=== PATIENT | female | born 1975 | race Two or more races ===

== ENCOUNTER 2024-06-26 11:37 | Outpatient (RCR) | payer MEDICAID, SELFPAY ==
--- NOTE | 2024-07-02 14:20 | CTCCONSULT_ITS ---
Patient: YOLANDE CUEVAS : 1975 MR#: [id number] Page 2 of 3 CONSULTATION NOTE DATE OF CONSULTATION: 06/26/2024 NAME: YOLANDE CUEVAS ACCOUNT: [id number] : 1975 AGE: 49 REFERRING PHYSICIAN: Sarina Lozano MD PRIMARY PHYSICIAN: Sarina Lozano MD REASON FOR VISIT: LCIS ONCOLOGY HISTORY: DIAGNOSIS: 03/04/2022 LCIS DATE OF DIAGNOSIS: 03/04/2022 STAGE/TNM: Stage 0 TREATMENT HISTORY: Care?Plan Start?Date Cycle Day Intent tamoxifen HISTORY OF PRESENT ILLNESS: 49-year-old female with a history of LCIS. Patient was diagnosed in 2021 and has been on tamoxifen. Patient is tolerating well and have no complaints. Patient want to establish care with us. OTHER MEDICAL HISTORY/CONDITIONS: LCIS left breast - dx Hypothyroid Obesity Tubal ligation Cholecystectomy - 6 yrs ago Uterine ablation FAMILY HISTORY: Patient?denies?family?cancer?history. SOCIAL HISTORY: Occupational?History:?Unemployed Education?Level:?Completed High School Marital?Status:? 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 betamethasone dipropionate - 0.05 % Every other day 2. levothyroxine - 175 mcg 1 tab Daily 3. tamoxifen - 20 mg 1 tab Daily 4. Wegovy - 0.25 mg/0.5 mL Weekly Medications Last Reconciled by Meredith Ruiz RN on 06/26/2024 ALLERGIES: No Known Drug Allergies REVIEW OF SYSTEMS: A complete 14-point review of systems was performed and is negative except as noted in interval histo ry. PHYSICAL EXAMINATION: VITAL SIGNS: Height?68?inches Weight?235?lbs PAIN: 0 - No pain ECOG Performance Status: 0 - Asymptomatic and fully active GENERAL APPEARANCE: Appears well, in no apparent distress, appropriately interactive. HEENT: Normocephalic, no temporal wasting, normal conjunctiva, no scleral icterus, normal hearing, li ps without lesions, neck normal range of motion. CARDIOVASCULAR: Not assessed. PULMONARY: Normal respiratory effort, no respiratory distress or use of accessory muscles, speaking i n full sentences, no tachypnea. EXTREMITIES: No pedal edema or cyanosis. SKIN: Normal skin appearance. NEUROLOGIC: Alert and oriented x4. PSHYCHIATRIC: Appropriate affect, mood normal, behavior normal, intact thought and speech. LABORATORY DATA: I have personally reviewed and interpreted each of the patient?s relevant lab tests, abnormal finding s are below: Date ASSESSMENT/PLAN: LCIS Patient need to continue tamoxifen for 5 years Reviewed old pathology report Tolerating tamoxifen well Patient have regular menstruation Will continue tamoxifen Advised to take calcium and vitamin D3 ORDERS: Tamoxifen CBC MP RETURN TO CLINIC: 6 months BILLING AND COMPLIANCE: I reviewed external records from providers outside my specialty as summarized above. I spent a total of 50 minutes on this patient?s care on the day of their visit excluding time spent related to any bi lled procedures. This time includes time spent with the patient as well as time spent documenting in the medical record, reviewing patients records and tests, obtaining history, placing orders, communi cating with other healthcare professionals, counseling the patient, family or caregiver, and/or care coordination for the diagnoses above. Electronically Signed by: Santhosh Gonzalez MD T: 2:17 PM CC: PCP: Sarina Lozano Referring: Sarina Lozano This document was completed utilizing speech recognition software. Grammatical errors, random word in sertions, pronoun errors, and incomplete sentences are an occasional consequence of this system due t o software limitations, ambient noise, and hardware issues. Any formal questions or concerns about th e content, text or information contained within the body of this dictation should be directly address ed to the provider for clarification.
== END 2024-06-26 23:59 | disposition home or self-care (01) ==
LOC: SCTC 11:37
PROVIDERS: PCP Nurse Practitioner Family; Referring Provider Nurse Practitioner Family; Visit Provider Internal Medicine Hematology & Oncology
DX: D05.02 Lobular carcinoma in situ of left breast (principal); Z79.810 Long term (current) use of selective estrogen receptor modulators (SERMs)
CPT/HCPCS: 99212; G0463

== ENCOUNTER → 2024-07-24 | Outpatient (CLI) | payer MEDICAID, SELFPAY ==
--- NOTE | 2024-07-24 12:00 | XR_ITS ---
Examination: MRI breasts without intravenous contrast MRI breasts with intravenous contrast Exam date and time: Generally 13/02/2025 1236 hours INDICATIONS: Diagnosis lobular carcinoma in situ left breast COMPARISON: Mammogram January 23, 2024 FINDINGS: Scattered areas of fibroglandular density Minimal background breast enhancement 10 mm circumscribed nodule outer right breast 3 mm circumscribed nodule retroareolar region left breast Multiple right axillary lymph nodes, the largest 14 mm Oval enlarged left axillary lymph nodes, including 25 mm, 22 mm and 21 mm with rapid wash-in and rapid washout No chest wall lesion No nipple retraction or skin thickening IMPRESSION: BI-RADS Category 0: Incomplete: Need additional imaging evaluation Multiple abnormally prominent left axillary lymph nodes with rapid wash-in and washout on the kinetic post contrast imaging Recommend follow-up diagnostic mammography Recommend follow-up bilateral breast sonography to complete the workup
== END | disposition home or self-care (01) ==
LOC: SMRI 11:48
PROVIDERS: PCP Nurse Practitioner Family; Referring Provider Nurse Practitioner Family; Visit Provider Nurse Practitioner Family
DX: D05.02 Lobular carcinoma in situ of left breast (principal)
CPT/HCPCS: 77049; A9579; C8908

== ENCOUNTER → 2024-08-06 | Outpatient (CLI) | payer MEDICAID, SELFPAY ==
--- NOTE | 2024-08-06 09:00 | XR_ITS ---
Examination: Breast ultrasound, unilateral, left complete Date and time of exam: August 06, 2024 0923 hours INDICATIONS: MRI breast July 24 2024 10 mm nodule outer right breast 3 mm circumscribed nodule retroareolar region left breast Technique: Real-time adrian scale ultrasonographic imaging performed left breast including all 4 quadrants as well as nipple retroareolar and axillary region. Findings: 3:00 cyst 6 x 3 mm Retroareolar cyst 4 x 3 mm No solid lymph nodes IMPRESSION: BI-RADS Category 2: Benign findings
== END | disposition home or self-care (01) ==
PROVIDERS: PCP Nurse Practitioner Family; Referring Provider Internal Medicine Hematology & Oncology; Visit Provider Internal Medicine Hematology & Oncology
DX: D24.2 Benign neoplasm of left breast (principal)
CPT/HCPCS: 76641

== ENCOUNTER → 2024-09-21 | Outpatient (CLI) | payer MEDICAID, SELFPAY ==
--- NOTE | 2024-09-21 11:30 | XR_ITS ---
Examination: Diagnostic digital mammography, unilateral, left Computer aided detection 3-D breast Tomosynthesis, unilateral Date and time of exam: September 21, 2024 at 1129 hours Comparison mammogram January 23, 2024, MRI breast July 24, 2024, left breast sonography August 06, 2024 INDICATIONS: Patient states left breast mass close to the nipple note is beginning 3 years ago, MRI breast July 24, 2024 multiple prominent left axillary lymph nodes Technique: Nonmagnified MLO, CC views of the left breast have been obtained, reconstructed from 3-D Tomosynthesis images. R2 computer aided detection program utilized for evaluation of suspicious masses and/or abnormal calcifications. 3-D Tomosynthesis images obtained. Findings: Scattered areas of fibroglandular density 8 mm circumscribed nodule retroareolar region left breast Impression: BI-RADS category 2: Benign findings Recommend yearly follow-up mammography
== END | disposition home or self-care (01) ==
LOC: CDIM 11:23
PROVIDERS: PCP Nurse Practitioner Family; Referring Provider Internal Medicine Hematology & Oncology; Visit Provider Internal Medicine Hematology & Oncology
DX: R92.322 Mammographic fibroglandular density, left breast (principal); D24.2 Benign neoplasm of left breast
CPT/HCPCS: 77061; 77065; G0279

== ENCOUNTER 2024-12-03 11:11 | Outpatient (RCR) | payer MEDICAID, SELFPAY ==
--- NOTE | 2024-12-09 22:46 | CTCFLWUP_ITS ---
Patient: YOLANDE CUEVAS : 1975 Page 3 of 4 FOLLOW UP NOTE DATE OF SERVICE: 12/03/2024 NAME: YOLANDE CUEVAS ACCOUNT: [id number] : 1975 AGE: 49 INTERVAL HISTORY: Subjective: Chief Complaint Follow-up for breast cancer treatment, monitoring of breast nodule History of Present Illness Yolande is a postmenopausal patient with a history of breast cancer, presenting for follow-up and management of her condition. The patient's last menstrual period was on September 05, 2020, and she has undergone uterine ablation and tubal ligation, confirming her menopausal status. The patient is currently on Tamoxifen therapy for breast cancer, which is planned to continue for 5 years. She reports an active lifestyle, which has been taken into consideration for her treatment plan. The patient is advised to take calcium and vitamin D supplements to support bone health while on Tamoxifen. During the visit, the patient's skin care regimen was discussed, with recommendations for sunscreen use to prevent melasma, a potential side effect of Tamoxifen. The patient was also counseled on the use of hydroquinone cream for skin discoloration, with instructions to avoid sun exposure when using this product. The patient's recent mammogram in August revealed an 8mm circumscribed nodule in the left breast, which is likely a cyst. This finding will be monitored with follow-up imaging studies. Medications and Supplements - Tamoxifen - Used for 5 years - Doesn't affect bone health - Increases risk of blood clots and uterine endometrial hyperplasia after 2-3 years - Calcium - Vitamin D - Hydroquinone cream - Used for melasma Review of Systems Genitourinary: Negative for menstrual periods. Objective: Laboratory, Imaging, and Diagnostic Test Results - Sodium: Slightly elevated (due to dehydration) - Hormone levels: Less than 5 (indicating menopause) - Mammogram (August 2024): 8mm circumscribed nodule in the left breast, likely a cyst ONCOLOGY HISTORY: DIAGNOSIS: 03/04/2022 LCIS DATE OF DIAGNOSIS: 03/04/2022 STAGE/TNM: Stage 0 TREATMENT HISTORY: Care?Plan Start?Date Cycle Day Intent HISTORY OF PRESENT ILLNESS: 49-year-old female with a history of LCIS. Patient was diagnosed in 2021 and has been on tamoxifen. Patient is tolerating well and have no complaints. Patient want to establish care with us. OTHER MEDICAL HISTORY/CONDITIONS: LCIS left breast - dx Hypothyroid Obesity Tubal ligation Cholecystectomy - 6 yrs ago Uterine ablation FAMILY HISTORY: Patient?denies?family?cancer?history. SOCIAL HISTORY: Occupational?History:?Unemployed Education?Level:?Completed High School Marital?Status:? Tobacco?Use:?Denies ETOH?Use:?Denies Drug?Note:?Denies Social?History?Note:?Denies RCIS HISTORY: Menarche?-?Age:?11 Menopause:?44 Hormone?Use:???med?x?9?yrs :?4 Live?Births:?3 Age?1st?:?17 Gynecological?Note:?1?miscarriage MEDICATIONS: 1. levothyroxine - 125 mcg 1 tab Daily 2. tamoxifen - 20 mg 1 tab Daily 3. Zepbound - 2.5 mg/0.5 mL 1 Weekly Medications Last Reconciled by Cyndy Man MA on 12/03/2024 ALLERGIES: No Known Drug Allergies REVIEW OF SYSTEMS: A complete 14-point review of systems was performed and is negative except as noted in interval history. PHYSICAL EXAMINATION: VITAL SIGNS: Temperature?98, B/P?111/77, Oxygen?Saturation?94% PAIN: 0 - No pain ECOG Performance Status: 0 - Asymptomatic and fully active GENERAL APPEARANCE: Appears well, in no apparent distress, appropriately interactive. HEENT: Normocephalic, no temporal wasting, normal conjunctiva, no scleral icterus, normal hearing, lips without lesions, neck normal range of motion. CARDIOVASCULAR: Not assessed. PULMONARY: Normal respiratory effort, no respiratory distress or use of accessory muscles, speaking in full sentences, no tachypnea. EXTREMITIES: No pedal edema or cyanosis. SKIN: Normal skin appearance. NEUROLOGIC: Alert and oriented x4. PSHYCHIATRIC: Appropriate affect, mood normal, behavior normal, intact thought and speech. LABORATORY DATA: I have personally reviewed and interpreted each of the patient?s relevant lab tests, abnormal findings are below: Date ASSESSMENT/PLAN: Yolande, postmenopausal female with history of breast cancer, presenting for follow-up and medication management. Patient need to continue tamoxifen for 5 years Reviewed old pathology report Tolerating tamoxifen well Patient have regular menstruation Will continue tamoxifen Advised to take calcium and vitamin D3 Patient is postmenopausal, confirmed by hormone levels less than five and last menstrual period on September 05, 2020. History of uterine ablation and tubal ligation further supports menopausal status. Currently on Tamoxifen for breast cancer treatment. Recent mammogram in August revealed an 8mm circumscribed nodule in the left breast, likely a cyst. Patient's active lifestyle is considered in treatment planning. Plan: - Continue Tamoxifen for 5 years - Supplement with calcium and vitamin D for bone health - Schedule mammogram and ultrasound to monitor 8mm left breast nodule - Follow up in 6 months - Consider switching from Tamoxifen to alternative medication after 2-3 years due to increased risk of blood clots and uterine endometrial hyperplasia - Educate patient on: - Increased sun protection to prevent melasma - Option of hydroquinone cream for melasma, with caution about sun exposure - Use of water-based sunscreen and moisturizer - Increased water intake to address mild dehydration Electrolyte Imbalance Assessment: Patient's labs show slightly elevated sodium levels, likely due to dehydration. Plan: - Encourage increased water intake - Monitor electrolyte levels in future lab work ORDERS: Order # Description [id number] MD Follow Up 6 Month + Comprehensive Metabolic Panel - 12 + CBC with Auto Diff [id number] Breast Ultrasound + Left [id number] MD Follow Up 2 Months RETURN TO CLINIC: 6m BILLING AND COMPLIANCE: I reviewed external records from providers outside my specialty as summarized above. I spent a total of 50 minutes on this patient?s care on the day of their visit excluding time spent related to any billed procedures. This time includes time spent with the patient as well as time spent documenting in the medical record, reviewing patients records and tests, obtaining history, placing orders, communicating with other healthcare professionals, counseling the patient, family or caregiver, and/or care coordination for the diagnoses above. Electronically Signed by: Santhosh Gonzalez MD T: 10:44 PM CC: PCP: Sarina Lozano Referring: Sarina Lozano This document was completed utilizing speech recognition software. Grammatical errors, random word insertions, pronoun errors, and incomplete sentences are an occasional consequence of this system due to software limitations, ambient noise, and hardware issues. Any formal questions or concerns about the content, text or information contained within the body of this dictation should be directly addressed to the provider for clarification.
== END 2024-12-24 23:59 | disposition home or self-care (01) ==
LOC: SCTC 11:11
PROVIDERS: PCP Nurse Practitioner Family; Referring Provider Nurse Practitioner Family; Visit Provider Internal Medicine Hematology & Oncology
DX: D05.02 Lobular carcinoma in situ of left breast (principal); Z78.0 Asymptomatic menopausal state; Z79.810 Long term (current) use of selective estrogen receptor modulators (SERMs); N63.20 Unspecified lump in the left breast, unspecified quadrant; E86.0 Dehydration
CPT/HCPCS: 99212; G0463

== ENCOUNTER → 2025-01-18 | Outpatient (CLI) | payer MEDICAID, SELFPAY ==
--- NOTE | 2025-01-18 16:15 | XR_ITS ---
Examination: Breast ultrasound, unilateral, left complete Date and time of exam: January 18, 2025 1613 hours INDICATIONS: Mammogram September 21, 2024 8mm nodule retroareolar region left breast, left breast sonogram August 06, 2024 retroareolar cyst 4 mm 3:00 cyst 6 mm Technique: Real-time adrian scale ultrasonographic imaging performed left breast including all 4 quadrants as well as nipple retroareolar and axillary region. Findings: 3:00 cyst 8 x 6 mm Retroareolar cyst 5 x 4 mm IMPRESSION: BI-RADS Category 2: Benign findings
== END | disposition home or self-care (01) ==
PROVIDERS: PCP Nurse Practitioner Family; Referring Provider Internal Medicine Hematology & Oncology; Visit Provider Internal Medicine Hematology & Oncology
DX: D24.2 Benign neoplasm of left breast (principal)
CPT/HCPCS: 76641

== ENCOUNTER 2025-03-11 15:13 | Outpatient (RCR) | payer MEDICAID, SELFPAY ==
--- NOTE | 2025-03-11 16:09 | CTCFLWUP_ITS ---
Patient: YOLANDE CUEVAS : 1975 Page 3 of 4 FOLLOW UP NOTE DATE OF SERVICE: 03/11/2025 NAME: YOLANDE CUEVAS ACCOUNT: [id number] : 1975 AGE: 49 INTERVAL HISTORY: Subjective: Chief Complaint Follow-up for breast cancer treatment, monitoring of breast nodule History of Present Illness Yolande is a postmenopausal patient with a history of breast cancer, presenting for follow-up and management of her condition. The patient's last menstrual period was on September 05, 2020, and she has undergone uterine ablation and tubal ligation, confirming her menopausal status. The patient is currently on Tamoxifen therapy for breast cancer, which is planned to continue for 5 years. She reports an active lifestyle, which has been taken into consideration for her treatment plan. The patient is advised to take calcium and vitamin D supplements to support bone health while on Tamoxifen. During the visit, the patient's skin care regimen was discussed, with recommendations for sunscreen use to prevent melasma, a potential side effect of Tamoxifen. The patient was also counseled on the use of hydroquinone cream for skin discoloration, with instructions to avoid sun exposure when using this product. The patient's recent mammogram in August revealed an 8mm circumscribed nodule in the left breast. ultrasound was complete. And it shows it to be benign cyst. Medications and Supplements - Tamoxifen - Used for 5 years - Doesn't affect bone health - Increases risk of blood clots and uterine endometrial hyperplasia after 2-3 years - Calcium - Vitamin D - Hydroquinone cream - Used for melasma Review of Systems Genitourinary: Negative for menstrual periods. Objective: Laboratory, Imaging, and Diagnostic Test Results - Sodium: Slightly elevated (due to dehydration) - Hormone levels: Less than 5 (indicating menopause) - Mammogram (August 2024): 8mm circumscribed nodule in the left breast, likely a cyst ONCOLOGY HISTORY: DIAGNOSIS: 03/04/2022 LCIS DATE OF DIAGNOSIS: 03/04/2022 STAGE/TNM: Stage 0 TREATMENT HISTORY: Care?Plan Start?Date Cycle Day Intent HISTORY OF PRESENT ILLNESS: 49-year-old female with a history of LCIS. Patient was diagnosed in 2022 and has been on tamoxifen. Patient is tolerating well and have no complaints. Patient want to establish care with us. OTHER MEDICAL HISTORY/CONDITIONS: LCIS left breast - dx Hypothyroid Obesity Tubal ligation Cholecystectomy - 6 yrs ago Uterine ablation FAMILY HISTORY: Patient?denies?family?cancer?history. SOCIAL HISTORY: Occupational?History:?Unemployed Education?Level:?Completed High School Marital?Status:? 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 escitalopram oxalate - 5 mg 1 tab Daily 2. hydrOXYzine HCl - 10 mg 1 tab Three times a day 3. levothyroxine - 125 mcg 1 tab Daily 4. [place] 3 - 2 Capsule Twice a Day 5. tamoxifen - 20 mg 1 tab Daily 6. Trazodone - 50 mg 1 tab As needed 7. Vitamin D2 - 1,250 mcg (50,000 unit) 1 Capsule Weekly 8. Zepbound - 2.5 mg/0.5 mL 1 Weekly Medications Last Reconciled by Cyndy Man MA on 03/11/2025 ALLERGIES: No Known Drug Allergies REVIEW OF SYSTEMS: A complete 14-point review of systems was performed and is negative except as noted in interval history. PHYSICAL EXAMINATION: VITAL SIGNS: Temperature?98.2, B/P?130/84, Oxygen?Saturation?96% Weight?217?lbs PAIN: 0 - No pain ECOG Performance Status: 0 - Asymptomatic and fully active GENERAL APPEARANCE: Appears well, in no apparent distress, appropriately interactive. HEENT: Normocephalic, no temporal wasting, normal conjunctiva, no scleral icterus, normal hearing, lips without lesions, neck normal range of motion. CARDIOVASCULAR: Not assessed. PULMONARY: Normal respiratory effort, no respiratory distress or use of accessory muscles, speaking in full sentences, no tachypnea. EXTREMITIES: No pedal edema or cyanosis. SKIN: Normal skin appearance. NEUROLOGIC: Alert and oriented x4. PSHYCHIATRIC: Appropriate affect, mood normal, behavior normal, intact thought and speech. LABORATORY DATA: I have personally reviewed and interpreted each of the patient?s relevant lab tests, abnormal findings are below: Date ASSESSMENT/PLAN: Yolande, postmenopausal female with history of breast cancer, presenting for follow-up and medication management. Patient need to continue tamoxifen for 5 years Patient have LCIS in 2020 and unclear if patient had it removed or not Reviewed old pathology report with LCIS Tolerating tamoxifen well Patient's last. Menstruation was in 2020 .will switch to anastrozole Advised to take calcium and vitamin D3 - switching from Tamoxifen to alternative medication after 2-3 years due to increased risk of blood clots and uterine endometrial hyperplasia Bilateral mammogram RTC in 6 months ORDERS: Order # Description [id number] 3D Mammogram Screening + Bilateral [id number] MD Follow Up 6 Month [id number] Comprehensive Metabolic Panel - 12 + CBC with Auto Diff RETURN TO CLINIC: I reviewed the diagnosis, prognosis, and recommended treatment/procedure options with the patient (and/or their legal client representative), including the potential benefits, risks, side effects and alternative therapies. We also discussed the option of no treatment and the possibility of clinical trial participation, if applicable. All questions were addressed, and they demonstrated understanding. They provided informed consent to proceed with the proposed plan of care. BILLING AND COMPLIANCE: I reviewed external records from providers outside my specialty as summarized above. I spent a total of 50 minutes on this patient?s care on the day of their visit excluding time spent related to any billed procedures. This time includes time spent with the patient as well as time spent documenting in the medical record, reviewing patients records and tests, obtaining history, placing orders, communicating with other healthcare professionals, counseling the patient, family or caregiver, and/or care coordination for the diagnoses above. Electronically Signed by: Santhosh Gonzalez MD T: 4:07 PM CC: PCP: Sarina Lozano Referring: Sarina Lozano This document was completed utilizing speech recognition software. Grammatical errors, random word insertions, pronoun errors, and incomplete sentences are an occasional consequence of this system due to software limitations, ambient noise, and hardware issues. Any formal questions or concerns about the content, text or information contained within the body of this dictation should be directly addressed to the provider for clarification.
== END 2025-03-26 23:59 | disposition home or self-care (01) ==
LOC: SCTC 15:13
PROVIDERS: PCP Nurse Practitioner Family; Referring Provider Nurse Practitioner Family; Visit Provider Internal Medicine Hematology & Oncology
DX: D05.02 Lobular carcinoma in situ of left breast (principal); Z79.810 Long term (current) use of selective estrogen receptor modulators (SERMs); Z78.0 Asymptomatic menopausal state
CPT/HCPCS: 99212; G0463

== ENCOUNTER → 2025-04-09 | Outpatient (CLI) | payer MEDICAID, SELFPAY ==
--- NOTE | 2025-04-09 10:30 | XR_ITS ---
Examination: Screening digital mammography, bilateral Computer aided detection 3-D breast Tomosynthesis, bilateral Date and time of exam: 04/09/2025, 11:03 a.m. Comparisons: December 2023 through August 2024 Indications: Screening Technique: Nonmagnified MLO, CC views of the breasts to been obtained, reconstructed from 3-D Tomosynthesis images. R2 computer aided detection program utilized for evaluation of suspicious masses and/or abnormal calcifications. 3-D Tomosynthesis images obtained. Technologist: Findings: There are scattered areas of fibroglandular density. No evidence of suspicious masses or suspicious calcifications. Benign-appearing right intermammillary lymph node Impression: BI-RADS category 1: Negative findings (within normal) Recommend 1 year follow-up mammogram
== END | disposition home or self-care (01) ==
LOC: CDIM 10:40
PROVIDERS: PCP Nurse Practitioner Family; Referring Provider Internal Medicine Hematology & Oncology; Visit Provider Internal Medicine Hematology & Oncology
DX: Z12.31 Encounter for screening mammogram for malignant neoplasm of breast (principal); R92.313 Mammographic fatty tissue density, bilateral breasts
CPT/HCPCS: 77063; 77067

== ENCOUNTER → 2025-05-31 | Outpatient (CLI) | payer MEDICAID, SELFPAY ==
--- NOTE | 2025-05-31 10:37 | XR_ITS ---
EXAMINATION: Right knee 4 views TECHNIQUE: AP oblique lateral axial right knee 4 views Date and time: May 31, 2025, 1053 hours INDICATIONS: Right knee pain and palpable lump right knee 8 days FINDINGS: Moderate osteopenia Mild narrowing medial joint space No fracture or patellar dislocation IMPRESSION: Mild narrowing medial joint space No fracture Consider ultrasound follow-up of any palpable soft tissue abnormality right knee
== END | disposition home or self-care (01) ==
LOC: SDIM 10:16 → CDIM 06-03 14:32
PROVIDERS: PCP Nurse Practitioner Family; Referring Provider Nurse Practitioner Family; Visit Provider Nurse Practitioner Family
DX: M25.861 Other specified joint disorders, right knee (principal)
CPT/HCPCS: 73564